=== PATIENT | female | born 1955 | race Caucasian/White ===

== ENCOUNTER 2016-07-15 13:42 | Day surgery (SDC) | payer OTHER ==
[~2016-07-15] VITALS: Ht 154.9 cm; Wt 86.2 kg
[~2016-07-15 13:42] MED LIST: ACID REDUCER150 MG PO; ARICEPT10 MG PO; ARICEPT5 MG PO; ATIVAN2 MG PO; BACTRIM,SEPT1 TABLET PO; BUSPIRONE HCL30 MG PO; CIPRO500 MG PO; CLOPIDOGREL75 MG PO; COREG3.125 M1 PO; DESYREL100 MG PO; DICYCLOMINE HCL10 MG PO; DONEPEZIL HCL5 MG PO; ENALAPRIL MALEA10 M1 PO; ENALAPRIL MALEA10 MG PO; ENDOCET 5-3251 EACH PO; FLEXERIL10 MG PO; FLEXERIL5 MG PO; FORTAMET1000 M1 PO; GABAPENTIN100 MG PO; GLUCOPHAGE XR,500 MG PO; GLUCOPHAGE500 MG PO; GRALISE600 MG PO; HYDROXYZINE PAM25 MG PO; KENALOG,ARISTOC80 G1 TP; LASIX20 MG PO; LIPITOR40 MG PO; LISINOPRIL2.5 MG PO; LISINOPRIL5 MG PO; LO-DOSE ASPIRIN81 M1 PO; LOMOTIL TABLET1 EACH PO; LOPRESSOR25 MG PO; MELOXICAM15 MG PO; METOPROLOL TART25 MG PO; MOBIC15 MG PO; MORPHINE SULFAT15 M1 PO; MS CONTIN,ORAMO15 M1 PO; NAPROSYN500 MG PO; NICODERM CQ1 EAC2 TD; NICOTINE PATCH1 EAC2 TD; NITROGLYCERIN0.4 MG SL; NITROSTAT0.4 MG SL; ONGLYZA5 MG PO; OXAYDO5 MG PO; PAXIL10 MG PO; PAXIL20 MG PO; PERCOCET 7.51 TABLET PO; PRAVACHOL40 MG PO; PRILOSEC40 MG PO; PROTONIX40 MG PO; QUETIAPINE FUMA50 MG PO; REMERON45 MG PO; ROXICODONE5 MG PO; ROZEREM8 MG PO; SEPTRA DS TABL1 EACH PO; TOPAMAX25 MG PO; ULTRAM50 MG PO; VISTARIL50 MG PO; WELLBUTRIN SR150 MG PO; XANAX0.5 MG PO; ZOFRAN ODT4 MG PO; ZOFRAN4 MG PO; ZOLOFT100 MG PO
== END 2016-07-15 16:20 | disposition home or self-care (01) ==
LOC: PAIN 13:42 → SDC 14:00 → PAIN 14:00
PROC: 3E0U33Z Introduction of Anti-inflammatory into Joints, Percutaneous Approach (ICD-10-PCS; principal; 2016-07-15)
DX: M16.11 Unilateral primary osteoarthritis, right hip (principal); F41.1 Generalized anxiety disorder; K21.9 Gastro-esophageal reflux disease without esophagitis; E78.5 Hyperlipidemia, unspecified; E03.9 Hypothyroidism, unspecified; I21.3 ST elevation (STEMI) myocardial infarction of unspecified site; M47.816 Spondylosis without myelopathy or radiculopathy, lumbar region; M54.16 Radiculopathy, lumbar region
CPT/HCPCS: J1030; J2250; J3010; S0020

== ENCOUNTER 2016-08-30 09:35 | Emergency (ER) | payer OTHER ==
[~2016-08-30] VITALS: Ht 152.4 cm; Wt 92.3 kg
[2016-08-30] MEDS ORDERED: PERCOCET 5/31 TABLET PO (11:23)
[2016-08-30 12:25] VITALS: BP 130/63
== END 2016-08-30 12:26 | disposition home or self-care (01) ==
LOC: EME 09:35
DX: S20.211A Contusion of right front wall of thorax, initial encounter (principal); Y04.2XXA Assault by strike against or bumped into by another person, initial encounter; I10 Essential (primary) hypertension; Z79.82 Long term (current) use of aspirin; F17.200 Nicotine dependence, unspecified, uncomplicated
CPT/HCPCS: 71020; 99281; 99285; J7030

== ENCOUNTER 2016-09-22 12:58 | Observation (INO) | payer OTHER ==
[~2016-09-22] VITALS: Ht 152.4 cm; Wt 90.3 kg
[~2016-09-22 12:58] MED LIST changes: +PERCOCET 5/31 TABLET PO
[2016-09-22 13:48] LABS: BASE EXCESS 7.6 mEq/L (-3 to +3); BICARBONATE 34.5 mEq/L (22-26); CARBOXY HGB 4.1 % (0-5); COMMENTS - BLOOD GASES A+C+; DEVICE NC; METHEMOGLOBIN 0.9 % (0-1.5); O2 FLOW 3 L/MIN; PCO2 57 mm Hg (35-45); PO2 124 mm Hg (80-100); SITE LR; TOTAL RESP RATE 14 resp/min; pH 7.39 (7.35-7.45)
[2016-09-22 14:00] LABS: BASOPHIL COUNT 0.1 K/uL (0-0.1); EOSINOPHIL (%) 3.9 % (0-5); EOSINOPHIL COUNT 0.4 K/uL (0-0.3); HEMATOCRIT 42.6 % (36.0-46.0); IMMATURE GRANULOCYTE (%) 0.3 % (0.0-0.7); INSTRUMENT ABS NEUTROPHIL CT 5.4 K/uL; LYMPHOCYTE COUNT 2.6 K/uL (1.0-2.8); MCH 29.7 PG (29.0-34.0); MCHC 32.2 G/DL (30.0-36.0); MCV 92.2 FL (83-99); MEAN PLAT.VOLUME 9.2 uM^3 (9.5-12.4); MONOCYTE (%) 5.3 % (3-12); MONOCYTE COUNT 0.5 K/uL (0-0.8); NEUTROPHIL (%) 60.9 % (45-76); NEUTROPHIL COUNT 5.4 K/uL (1.8-6.4); PLATELET COUNT 343 K/uL (156-360); RBC DIS.WIDTH-CV 13.6 % (11.8-14.6); RBC DIS.WIDTH-SD 45.5 % (39-53); RED BLOOD COUNT 4.62 M/uL (3.80-5.20); WHITE BLOOD COUNT 8.9 K/uL (4.1-10.2)
[2016-09-22 14:10] LABS: CHLORIDE 104 mEq/L (99-109); POTASSIUM 4.1 mEq/L (3.7-5.4); SODIUM 143 mEq/L (136-147)
[2016-09-22 14:12] LABS: GLUCOSE 137 mg/dL (70-99)
[2016-09-22 14:13] LABS: ANION GAP 9 MEQ/L (2-14)
[2016-09-22 14:14] LABS: TOTAL BILIRUBIN < 0.1 mg/dL (0.0-1.0)
[2016-09-22 14:16] LABS: ALKALINE PHOSPHATASE 78 IU/L (3-129); GFR ESTIMATE (CALCULATED) > 59 mL/min/
[2016-09-22 14:17] LABS: UREA NITROGEN (BUN) 11 mg/dL (9-23)
[2016-09-22 14:21] LABS: TROP-I INTERPRETATION NEGATIVE; TROPONIN-I < 0.01 ng/mL (0.0-0.30)
[2016-09-22] MEDS ORDERED: LEVOTHYROXINE75 MCG PO (17:46)
[2016-09-22] MEDS ORDERED: ATORVASTATIN CA40 MG PO (17:46)
[2016-09-22] MEDS ORDERED: LOPERAMIDE2 M1 PO (17:47)
[2016-09-22] MEDS ORDERED: TOPIRAMATE100 MG PO (17:48)
[2016-09-22] MEDS ORDERED: ACTOS30 MG PO (17:51)
[2016-09-22] MEDS ORDERED: VITAMIN D31000 UNI2 PO (17:51)
[2016-09-22] MEDS ORDERED: DAILY VITAMIN1 EAC4 PO (17:51)
[2016-09-22] MEDS ORDERED: ALPRAZOLAM1 MG PO (17:52)
[2016-09-22] MEDS ORDERED: VENLAFAXINE HCL75 M3 PO (17:52)
[2016-09-22] MEDS ORDERED: RANITIDINE HCL150 MG PO (17:52)
[2016-09-22] MEDS ORDERED: TRADJENTA5 MG PO (17:53)
[2016-09-22 19:06] LABS: Estimated Average Glucose 151 mg/dL (70-123); HEMOGLOBIN A1c (GLYCOHEMOGLOB) 6.9 % HGB (Below 5.7)
[2016-09-22 19:53] VITALS: BP 123/66
[2016-09-22 21:50] LABS: TROP-I INTERPRETATION NEGATIVE; TROPONIN-I < 0.01 ng/mL (0.0-0.30)
[2016-09-23 00:16] VITALS: BP 110/49
[2016-09-23 02:27] LABS: TROP-I INTERPRETATION NEGATIVE; TROPONIN-I < 0.01 ng/mL (0.0-0.30)
[2016-09-23 04:32] VITALS: BP 142/65
[2016-09-23 07:28] VITALS: BP 135/75
[2016-09-23 08:58] LABS: POINT-OF-CARE METER ID UU14162513
[2016-09-23] MEDS ORDERED: PREDNISONE20 MG PO (10:52)
[2016-09-23] MEDS ORDERED: BREO ELLIPTA I1 EACH IH (11:57)
[2016-09-23] MEDS ORDERED: ZITHROMAX500 MG PO (12:00)
[2016-09-23 12:22] VITALS: BP 143/68
[2016-09-24 11:19] LABS: POINT-OF-CARE METER ID UU14162513
== END 2016-09-23 13:21 | disposition home or self-care (01) ==
LOC: EME → EDBD 12:58 → EDOF 17:05 → 5WEST 17:05
PROVIDERS: Emergency Medicine; Hospitalist; Internal Medicine
DX: R06.02 Shortness of breath (principal); J44.9 Chronic obstructive pulmonary disease, unspecified; S22.41XD Multiple fractures of ribs, right side, subsequent encounter for fracture with routine healing; I25.10 Atherosclerotic heart disease of native coronary artery without angina pectoris; Z95.5 Presence of coronary angioplasty implant and graft; F17.200 Nicotine dependence, unspecified, uncomplicated; E11.9 Type 2 diabetes mellitus without complications; E78.5 Hyperlipidemia, unspecified; I10 Essential (primary) hypertension; G43.909 Migraine, unspecified, not intractable, without status migrainosus; I25.2 Old myocardial infarction; R09.02 Hypoxemia; G89.4 Chronic pain syndrome; F32.9 Major depressive disorder, single episode, unspecified; E66.9 Obesity, unspecified; Z68.38 Body mass index [BMI] 38.0-38.9, adult
CPT/HCPCS: 36600; 71275; 80053; 82803; 82948; 83036; 83880; 84484; 85025; 87070; 87205; 93005; 94640; 94640 76; 94799; 99202; 99281; 99285; G0378; J1650; J1815; J1885; J2930; J7040

== ENCOUNTER 2016-12-19 12:46 | Emergency (ER) | payer OTHER ==
[~2016-12-19] VITALS: Ht 149.9 cm; Wt 89.8 kg
[~2016-12-19 12:46] MED LIST changes: +ACTOS30 MG PO; +ALPRAZOLAM1 MG PO; +ATORVASTATIN CA40 MG PO; +BREO ELLIPTA I1 EACH IH; +DAILY VITAMIN1 EAC4 PO; +LEVOTHYROXINE75 MCG PO; +LOPERAMIDE2 M1 PO; +PREDNISONE20 MG PO; +RANITIDINE HCL150 MG PO; +TOPIRAMATE100 MG PO; +TRADJENTA5 MG PO; +VENLAFAXINE HCL75 M3 PO; +VITAMIN D31000 UNI2 PO; +ZITHROMAX500 MG PO
[2016-12-19 14:06] LABS: BASOPHIL COUNT 0.1 K/uL (0-0.1); EOSINOPHIL (%) 3.8 % (0-5); EOSINOPHIL COUNT 0.2 K/uL (0-0.3); HEMATOCRIT 40.6 % (36.0-46.0); IMMATURE GRANULOCYTE (%) 0.2 % (0.0-0.7); INSTRUMENT ABS NEUTROPHIL CT 3.6 K/uL; LYMPHOCYTE COUNT 1.7 K/uL (1.0-2.8); MCHC 31.3 G/DL (30.0-36.0); MCV 95.8 FL (83-99); MEAN PLAT.VOLUME 9.6 uM^3 (9.5-12.4); MONOCYTE (%) 7.7 % (3-12); MONOCYTE COUNT 0.5 K/uL (0-0.8); NEUTROPHIL COUNT 3.6 K/uL (1.8-6.4); PLATELET COUNT 260 K/uL (156-360); RBC DIS.WIDTH-CV 14.1 % (11.8-14.6); RBC DIS.WIDTH-SD 49.4 % (39-53); RED BLOOD COUNT 4.24 M/uL (3.80-5.20); WHITE BLOOD COUNT 6.1 K/uL (4.1-10.2)
[2016-12-19 14:16] LABS: CHLORIDE 103 mEq/L (99-109); SODIUM 142 mEq/L (136-147)
[2016-12-19 14:19] LABS: GLUCOSE 92 mg/dL (70-99)
[2016-12-19 14:20] LABS: ANION GAP 9 MEQ/L (2-14); TOTAL BILIRUBIN 0.3 mg/dL (0.0-1.0)
[2016-12-19 14:22] LABS: ALKALINE PHOSPHATASE 89 IU/L (3-129); GFR ESTIMATE (CALCULATED) > 59 mL/min/
[2016-12-19 14:23] LABS: UREA NITROGEN (BUN) 16 mg/dL (9-23)
[2016-12-19 14:27] LABS: TROP-I INTERPRETATION NEGATIVE; TROPONIN-I < 0.01 ng/mL (0.0-0.30)
[2016-12-19 15:05] VITALS: BP 122/78
== END 2016-12-19 15:06 | disposition home or self-care (01) ==
LOC: EME 12:46
PROVIDERS: Physician Assistant
DX: R53.1 Weakness (principal); I10 Essential (primary) hypertension; E78.5 Hyperlipidemia, unspecified; E11.9 Type 2 diabetes mellitus without complications; Z79.84 Long term (current) use of oral hypoglycemic drugs; Z79.82 Long term (current) use of aspirin; Z95.5 Presence of coronary angioplasty implant and graft; F17.200 Nicotine dependence, unspecified, uncomplicated
CPT/HCPCS: 71020; 80053; 81003; 84484; 85025; 93005; 99281; 99283

== ENCOUNTER 2017-03-23 11:52 | Day surgery (SDC) | payer OTHER ==
[~2017-03-23] VITALS: Ht 144.8 cm; Wt 90.7 kg
[~2017-03-23 11:52] MED LIST changes: +ALL DAY ALLERGY10 M3 PO; +AMMONIUM LACTA140 GM TP; +BENADRYL25 MG PO; +DULERA 100 MCG/13 GM IH; +EFFEXOR XR75 MG PO; -GRALISE600 MG PO; +KLONOPIN1 MG PO; +LIDODERM 5% P1 PATCH TD; +NEURONTIN600 MG PO; -VENLAFAXINE HCL75 M3 PO; +VITAMIN B COMP1 EACH PO
[2017-03-23 12:17] LABS: POINT-OF-CARE METER ID UU14174212
== END 2017-03-23 13:48 | disposition home or self-care (01) ==
LOC: PAIN 11:52 → SDC 12:30 → PAIN 12:30
PROVIDERS: Anesthesiology Pain Medicine
DX: M47.26 Other spondylosis with radiculopathy, lumbar region (principal); M51.16 Intervertebral disc disorders with radiculopathy, lumbar region; G89.29 Other chronic pain; M79.1 Myalgia; I10 Essential (primary) hypertension; E11.9 Type 2 diabetes mellitus without complications; J44.9 Chronic obstructive pulmonary disease, unspecified; K21.0 Gastro-esophageal reflux disease with esophagitis; I25.2 Old myocardial infarction; E03.9 Hypothyroidism, unspecified; E66.01 Morbid (severe) obesity due to excess calories; Z68.41 Body mass index [BMI] 40.0-44.9, adult; Z79.82 Long term (current) use of aspirin; F17.200 Nicotine dependence, unspecified, uncomplicated
CPT/HCPCS: 82948; J1030; J2250; J3010; S0020

== ENCOUNTER 2017-06-08 07:21 | Day surgery (SDC) | payer OTHER ==
[~2017-06-08] VITALS: Ht 144.8 cm; Wt 90.7 kg
[~2017-06-08 07:21] MED LIST changes: +AMBIEN5 MG PO; +TOPAMAX50 MG PO; -TOPIRAMATE100 MG PO; +XANAX1 MG PO
== END 2017-06-08 09:38 | disposition home or self-care (01) ==
LOC: PAIN 07:21 → SDC 08:15 → PAIN 09:38
PROVIDERS: Anesthesiology Pain Medicine
DX: M47.26 Other spondylosis with radiculopathy, lumbar region (principal); G89.29 Other chronic pain; M54.5 Low back pain; M50.30 Other cervical disc degeneration, unspecified cervical region; M47.12 Other spondylosis with myelopathy, cervical region; I10 Essential (primary) hypertension; E11.9 Type 2 diabetes mellitus without complications; I25.10 Atherosclerotic heart disease of native coronary artery without angina pectoris; J44.9 Chronic obstructive pulmonary disease, unspecified; F41.8 Other specified anxiety disorders; K21.0 Gastro-esophageal reflux disease with esophagitis; E03.9 Hypothyroidism, unspecified; I25.2 Old myocardial infarction; E66.01 Morbid (severe) obesity due to excess calories; Z68.41 Body mass index [BMI] 40.0-44.9, adult; F17.200 Nicotine dependence, unspecified, uncomplicated; Z79.82 Long term (current) use of aspirin
CPT/HCPCS: 82948; J1030; J2250; J3010; S0020

== ENCOUNTER 2017-08-03 09:57 | Day surgery (SDC) | payer OTHER ==
[~2017-08-03] VITALS: Ht 152.4 cm; Wt 90.7 kg
[~2017-08-03 09:57] MED LIST changes: -DULERA 100 MCG/13 GM IH
[2017-08-03 11:22] LABS: BASOPHIL COUNT 0.1 K/uL (0-0.1); EOSINOPHIL (%) 2.4 % (0-5); EOSINOPHIL COUNT 0.1 K/uL (0-0.3); HEMATOCRIT 41.6 % (36.0-46.0); HEMOGLOBIN 13.8 G/DL (11.9-15.5); IMMATURE GRANULOCYTE (%) 0.2 % (0.0-0.7); LYMPHOCYTE (%) 29.9 % (15-42); LYMPHOCYTE COUNT 1.8 K/uL (1.0-2.8); MCH 31.4 PG (29.0-34.0); MCHC 33.2 G/DL (30.0-36.0); MCV 94.8 FL (83-99); MONOCYTE (%) 9.8 % (3-12); MONOCYTE COUNT 0.6 K/uL (0-0.8); NEUTROPHIL (%) 56.7 % (45-76); NEUTROPHIL COUNT 3.4 K/uL (1.8-6.4); PLATELET COUNT 258 K/uL (156-360); RBC DIS.WIDTH-SD 44.6 % (39-53); RED BLOOD COUNT 4.39 M/uL (3.80-5.20); WHITE BLOOD COUNT 5.9 K/uL (4.1-10.2)
[2017-08-03 11:49] LABS: CHLORIDE 102 MEQ/L (99-109); GFR ESTIMATE (CALCULATED) > 59 mL/min/; GLUCOSE 117 mg/dL (70-99); POTASSIUM 3.8 MEQ/L (3.7-5.4); SODIUM 139 MEQ/L (136-147); UREA NITROGEN (BUN) 19 mg/dL (9-23)
== END 2017-08-03 12:08 | disposition home or self-care (01) ==
LOC: PAIN 09:57
PROVIDERS: Anesthesiology; Anesthesiology Pain Medicine
DX: M47.816 Spondylosis without myelopathy or radiculopathy, lumbar region (principal); M79.1 Myalgia; G89.29 Other chronic pain; M25.561 Pain in right knee; M25.562 Pain in left knee; M19.90 Unspecified osteoarthritis, unspecified site; J44.9 Chronic obstructive pulmonary disease, unspecified; F17.200 Nicotine dependence, unspecified, uncomplicated; E11.9 Type 2 diabetes mellitus without complications; Z79.4 Long term (current) use of insulin; K21.9 Gastro-esophageal reflux disease without esophagitis; E78.5 Hyperlipidemia, unspecified; K44.9 Diaphragmatic hernia without obstruction or gangrene; E66.01 Morbid (severe) obesity due to excess calories; Z68.41 Body mass index [BMI] 40.0-44.9, adult; G40.909 Epilepsy, unspecified, not intractable, without status epilepticus; I87.2 Venous insufficiency (chronic) (peripheral)
CPT/HCPCS: 80048; 82948; 85025; J1030; J2250; J3010; S0020

== ENCOUNTER 2017-09-22 16:58 | Emergency (ER) | payer OTHER ==
[~2017-09-22] VITALS: Ht 149.9 cm; Wt 96.8 kg
[2017-09-22] MEDS ORDERED: AUGMENTIN875 MG PO (17:25)
[2017-09-22] MEDS ORDERED: MOTRIN600 MG PO (17:26)
[2017-09-22 18:03] VITALS: BP 140/89
== END 2017-09-22 18:04 | disposition home or self-care (01) ==
LOC: EME 16:58
PROC: 3E0234Z Introduction of Serum, Toxoid and Vaccine into Muscle, Percutaneous Approach (ICD-10-PCS; principal; 2017-09-22)
DX: S91.032A Puncture wound without foreign body, left ankle, initial encounter (principal); W54.0XXA Bitten by dog, initial encounter; Y93.89 Activity, other specified; Z23 Encounter for immunization; Z88.1 Allergy status to other antibiotic agents
CPT/HCPCS: 99281; 99283